=== PATIENT | male | born 1965 | race Caucasian/White ===

== ENCOUNTER 2016-09-05 11:44 | Inpatient (IN) | payer BC ==
[~2016-09-05] VITALS: Ht 193 cm; Wt 88.6 kg
--- NOTE | 2016-09-05 12:14 | EMERGENCY ROOM VISIT NOTE ---
History Report prepared by Howard: Yogi Olivares Under the Supervision of: Dr. Tom Holly M.D. First contact with patient: 11:56 Chief Complaint: ILLNESS Stated Complaint: ACUTE HEPATITIS History of Present Illness The patient is a 51 year old male who presents to the Emergency Room with complaints of persistent jaundice for the past three days. The patient went to his PCP's office yesterday, where he had blood work. His liver enzyme values were T-B 9.6, AST 82, ALT 380. He had a negative ABC test. The patient has had abdominal cramping for the past five days, which has improved but is still present. He also experienced fevers, vomiting, and diarrhea since the onset of his abdominal pain. The patient was referred to the ED by his PCP, Dr. Michel. The patient had one Tylenol on Saturday. The patient drinks about one glass of wine per day. The patient also notes that he had 2 cups of CAVA tea. The patient still has his gallbladder. He has not had any previous abdominal surgeries. Source of History: patient Onset: three days Position: other (skin) Quality: other (jaundice) Timing: other (persistent) Associated Symptoms: + abdominal pain, + diarrhea, + fevers, + vomiting Review of Systems See HPI for pertinent positives & negatives. A total of 10 systems reviewed and were otherwise negative. Past Medical & Surgical Medical Problems: (1) Choledocholithiasis (2) HTN (hypertension) (3) Hypothyroidism (4) MVP (mitral valve prolapse) Surgical Problems: (1) H/O wisdom tooth extraction Family History Cancer Heart disease Hypertension Social History Smoking Status: Never Smoker Alcohol Use: occasionally Marital Status: Housing Status: lives with family Occupation Status: employed Current/Historical Medications Scheduled Levothyroxine Sodium (Levothyroxine Sodium), 125 MCG PO DAILY Multiple Vitamins W/ Minerals (Centrum Silver), 1 TAB PO HS Allergies Coded Allergies: No Known Allergies (Unverified , 09/05/16) Physical Exam Vital Signs Date Time Temp Pulse Resp B/P Pulse Ox O2 Delivery O2 Flow Rate FiO2 09/05/16 17:39 83 09/05/16 17:21 78 20 138/91 97 Room Air 09/05/16 15:00 77 20 112/78 99 Room Air 09/05/16 13:44 78 18 144/89 96 09/05/16 12:29 79 09/05/16 11:53 36.9 92 18 154/109 96 Room Air Physical Exam GENERAL: Patient is jaundiced in appearance. HEAD: Normocephalic atraumatic EYES: Ocular movements intact pupils equal and react to light. Sclera are injected. OROPHARYNX mucous membranes are moist no exudates present no erythema or edema present NECK: Supple no nuchal rigidity CHEST: Good equal expansion LUNGS: Clear and equal to auscultation CARDIAC: Normal S1 and S2 ABDOMEN: Soft nontender no guarding BACK: No CVA tenderness EXTREMITIES: No pain upon palpation normal muscle strength in all groups no clubbing cyanosis or edema NEURO: Patient is following commands is answering questions appropriately. Alert and oriented x3 Cranial Nerves 2-12 grossly intact Medical Decision & Procedures ER Provider Diagnostic Interpretation: Radiology results as stated below per my review and radiologist interpretation: ABDOMINAL ULTRASOUND, RIGHT UPPER QUADRANT HISTORY: Right upper quadrant abdominal pain. Acute hepatitis. COMPARISON: None. FINDINGS: The liver is slightly heterogeneous. The liver is not overtly cirrhotic. There is mild intra and extrahepatic biliary ductal dilatation. The common bile duct measures 8 mm in caliber. The distal common bile duct is obscured. No common bile duct calculi are identified by sonography. The gallbladder is filled with gallstones. The pancreatic body is normal. The head and tail are obscured. There is no right hydronephrosis. IMPRESSION: 1. Mild intra and extrahepatic biliary ductal dilatation. No common bile duct calculi identified although the distal common bile duct is obscured. Correlation with obstructive liver function tests is recommended to evaluate for potential biliary obstruction. 2. Gallbladder filled with gallstones. Mild gallbladder wall thickening with no pericholecystic fluid. 3. Partially obscured pancreas. Electronically signed by: Erik Mcclendon M.D. 09/05/2016 1:33 PM Dictated Date/Time: 09/05/2016 1:31 PM Laboratory Results Test 09/05/16 12:20 09/05/16 12:22 Urine Color DK YELLOW Urine Appearance CLEAR (CLEAR) Urine pH 5.5 (4.5-7.5) Urine Specific [place] 1.021 (1.000-1.030) Urine Protein TRACE (NEG) Urine Glucose (UA) NEG (NEG) Urine Ketones 1+ (NEG) Urine Occult Blood NEG (NEG) Urine Nitrite NEG (NEG) Urine Bilirubin 3+ (NEG) Urine Urobilinogen NEG (NEG) Urine Leukocyte Esterase SMALL (NEG) Urine WBC (Auto) 0 /hpf (0-5) Urine RBC (Auto) 5-10 /hpf (0-4) Urine Hyaline Casts (Auto) 0 /lpf (0-5) Urine Epithelial Cells (Auto) 0-5 /lpf (0-5) Urine Bacteria (Auto) NEG (NEG) Immature Granulocyte % (Auto) 0.3 % White Blood Count 9.92 K/uL (4.8-10.8) Red Blood Count 5.26 M/uL (4.7-6.1) Hemoglobin 16.2 g/dL (14.0-18.0) Hematocrit 45.7 % (42-52) Mean Corpuscular Volume 86.9 fL (80-100) Mean Corpuscular Hemoglobin 30.8 pg (25-34) Mean Corpuscular Hemoglobin Concent 35.4 g/dl (32-36) Platelet Count 243 K/uL (130-400) Mean Platelet Volume 10.5 fL (7.4-10.4) Neutrophils (%) (Auto) 72.4 % Lymphocytes (%) (Auto) 13.4 % Monocytes (%) (Auto) 12.8 % Eosinophils (%) (Auto) 0.7 % Basophils (%) (Auto) 0.4 % Neutrophils # (Auto) 7.18 K/uL (1.4-6.5) Lymphocytes # (Auto) 1.33 K/uL (1.2-3.4) Monocytes # (Auto) 1.27 K/uL (0.11-0.59) Eosinophils # (Auto) 0.07 K/uL (0-0.5) Basophils # (Auto) 0.04 K/uL (0-0.2) Immature Granulocyte # (Auto) 0.03 K/uL (0.00-0.02) Ferritin 282.4 ng/ml (8.0-388.0) Direct Bilirubin 8.1 mg/dl (0-0.2) Acetaminophen Level ug/ml (10-30) Hepatitis B Surface Antigen NEG (NEG) Hepatitis C Antibody NEG (NEG) Labs reviewed by ED physician. ED Course 1205: Past medical records reviewed. The patient was evaluated in room A4b. A complete history and physical examination was performed. 1455: Discussed the case with the electron microprobe operator [facility] [address] [facility]. They recommended admitting the patient to medicine. 1456: Discussed the case with Orlando Reddy. The patient will be evaluated. Medical Decision Etiologies such as appendicitis, diverticulitis, PUD, biliary pathology, UTI, pancreatitis, obstruction, mesenteric ischemia, aortic pathology, infections, inflammatory bowel disease, renal colic, as well as others were entertained. This is a 51-year-old male who presents emergency department jaundiced with elevated T bili. The patient at this point is currently pain-free. Ultrasound is concerning for multiple dilated intrahepatic ducts. Based on these findings I discussed the patient with gastroenterology who asked that the patient be admitted. Patient was in agreement with the treatment plan. Consults Time Called: 1449 Consulting Physician: Orlando Reddy Returned Call: [phone]: Discussed the case with Orlando Reddy. The patient will be evaluated. Impression Primary Impression: Jaundice Scribe Attestation The scribe's documentation has been prepared under my direction and personally reviewed by me in its entirety. I confirm that the note above accurately reflects all work, treatment, procedures, and medical decision making performed by me. Departure Information Dispostion Being Evaluated By Hospitalist Referrals Elio Newman M.D.(NATASHA) (PCP) Patient Instructions My [facility]
[2016-09-05] MEDS ORDERED: MULTCHW PO (12:23)
[2016-09-05] MEDS ORDERED: LEVO25TA5 PO (12:23)
[2016-09-05 12:33] LABS: BASO % 0.4 %; BASO ABS # 0.04 K/uL (0-0.2); COMPLETE YES; EOS % 0.7 %; HEMATOCRIT 45.7 % (42-52); IG% 0.3 %; LYMPH % 13.4 %; LYMPH ABS # 1.33 K/uL (1.2-3.4); MEAN CELL VOLUME 86.9 fL (80-100); MEAN CORPUSCULAR HEMOGLOBIN 30.8 pg (25-34); MEAN CORPUSCULAR HGB CONC 35.4 g/dl (32-36); MEAN PLATELET VOLUME 10.5 fL (7.4-10.4); MONO % 12.8 %; NEUT % 72.4 %; PLATELET COUNT 243 K/uL (130-400); RED BLOOD COUNT 5.26 M/uL (4.7-6.1); WHITE BLOOD COUNT 9.92 K/uL (4.8-10.8)
[2016-09-05 12:35] LABS: URINE APPEARANCE CLEAR (CLEAR); URINE COLOR DK YELLOW; URINE EPITHELIAL CELL AUTO 0-5 /lpf (0-5); URINE PH 5.5 (4.5-7.5); URINE SPECIFIC GRAVITY 1.021 (1.000-1.030); UROBILINOGEN NEG (NEG)
[2016-09-05 12:37] LABS: MANUAL MICROSCOPIC REQUIRED? NO; REVIEW REQ? NO; URINE BILIRUBIN 3+ (NEG)
[2016-09-05 12:39] LABS: URINE NITRITE NEG (NEG)
[2016-09-05 12:55] LABS: BUN/CREATININE RATIO 9.2 (10-20); CALCIUM 9.5 mg/dl (8.5-10.1); CREATININE 0.87 mg/dl (0.60-1.40); POTASSIUM 3.7 mmol/L (3.5-5.1)
[2016-09-05 12:59] LABS: FERRITIN 282.4 ng/ml (8.0-388.0)
--- NOTE | 2016-09-05 13:35 | DIAGNOSTIC IMAGING REPORT ---
ABDOMINAL ULTRASOUND, RIGHT UPPER QUADRANT HISTORY: Right upper quadrant abdominal pain. Acute hepatitis. COMPARISON: None. FINDINGS: The liver is slightly heterogeneous. The liver is not overtly cirrhotic. There is mild intra and extrahepatic biliary ductal dilatation. The common bile duct measures 8 mm in caliber. The distal common bile duct is obscured. No common bile duct calculi are identified by sonography. The gallbladder is filled with gallstones. The pancreatic body is normal. The head and tail are obscured. There is no right hydronephrosis. IMPRESSION: 1. Mild intra and extrahepatic biliary ductal dilatation. No common bile duct calculi identified although the distal common bile duct is obscured. Correlation with obstructive liver function tests is recommended to evaluate for potential biliary obstruction. 2. Gallbladder filled with gallstones. Mild gallbladder wall thickening with no pericholecystic fluid. 3. Partially obscured pancreas. Electronically signed by: Erik Mcclendon M.D. 09/05/2016 1:33 PM Dictated Date/Time: 09/05/2016 1:31 PM
--- NOTE | 2016-09-05 17:08 | DIAGNOSTIC IMAGING REPORT ---
MRCP CLINICAL HISTORY: Biliary obstruction. Hepatitis. COMPARISON STUDY: Abdominal ultrasound dated 09/05/2016. TECHNIQUE: Abdominal MRCP is performed utilizing various T2-weighted sequences in the axial and coronal planes. 3-D reformats are created and assessed. IV contrast was not administered for this examination. FINDINGS: The gallbladder is filled with large gallstones. No significant gallbladder wall thickening is identified. There is no pericholecystic inflammation or fluid. A filling defect in the common bile duct is suspected on coronal high-resolution image #73. The upstream common bile duct is mildly dilated measuring up to 7 mm. There is mild intrahepatic biliary ductal dilatation. The distal common bile duct is normal in caliber measuring up to 4 mm. The pancreatic duct is normal. The liver is normal in size and shows homogeneous signal intensity on the provided sequences. There is a 1.1 cm T2 hyperintense lesion in the inferior right lobe seen on axial image #19. The kidneys are normal in size and without hydronephrosis. There is a 3.9 cm left renal cyst. The pancreas is normal as imaged, as are the adrenal glands and spleen. There is no bowel obstruction. Colonic fecal retention is observed. No abdominal ascites is identified. No pleural effusion is seen. IMPRESSION: 1. Cholelithiasis without convincing MRI evidence of acute cholecystitis. 2. Choledocholithiasis is suspected, with a small stone located in the proximal common bile duct. There is upstream intra and extrahepatic biliary ductal dilatation. 3. There is an indeterminant 1.1 cm T2 hyperintense lesion in the inferior right lobe. This may represent a small hemangioma but is incompletely characterized. This is of low suspicion. If further assessment is desired then a targeted ultrasound could be considered, or a liver protocol CT/MRI could be obtained on a nonemergent basis. Electronically signed by: Carloz Kebede M.D. 09/05/2016 5:06 PM Dictated Date/Time: 09/05/2016 4:59 PM
[2016-09-05] MEDS ORDERED: ONDANSETRON INJ 2 MG/ML 2 ML VIAL IV PRN (18:00)
[2016-09-05] MEDS ORDERED: ACETAMINOPHEN 325 MG TAB PO PRN (18:00)
[2016-09-05] MEDS ORDERED: LEVO125T4 PO (18:02)
--- NOTE | 2016-09-05 18:25 | History and Physical ---
History & Physical Date & Time of Service: Sep 05, 2016 at 18:02 Chief Complaint: Acute Hepatitis Primary Care Physician: Elio Newman M.D.(NATASHA) History of Present Illness Source: patient This is a 51 y/o male with PMHx of Hypothyroidism, situational HTN and other problems as outlined below who presents to the ED c/o intermittent abdominal pain x 5 days. Pt reports that 5 days ago he developed diffuse "burning" abd pain after eating house meatballs for dinner. Since that time patient reports waxing and waning pain that seems to be worse after eating. Sxs are assoc with low grade fever (100.4*F), jaundice, N/V, dark urine and pale stool. Pt took a Tylenol on Saturday for his fever but has not taken anything at home for his pain. Pt was seen by his PCP yesterday. Labwork revealed elevated LFTs and patient was referred to the ED. Pt has no history of gallbladder issues and no history of abdominal surgeries. Pt denies chest pain, SOB, constipation, diarrhea, LE edema ,calf pain, lightheadedness/dizziness. In the ED, pt is hypertensive on arrival. He is afebrile with no leukocytosis. Total bili 9.8. direct bili 8.1. AST 76. ALT 330. Urine 3+ bili. MRCP + choledocholithiasis without evidence of acute cholecystitis. Pt is currently stable and comfortable and will be admitted for further evaluation and treatment. Past Medical/Surgical History Medical Problems: (1) HTN (hypertension) Status: Chronic (2) Hypothyroidism Status: Chronic (3) MVP (mitral valve prolapse) Status: Chronic Surgical Problems: (1) H/O wisdom tooth extraction Status: Resolved Family History Cancer Heart disease Hypertension Social History Smoking Status: Never Smoker Alcohol Use: 1 glass of wine daily Marital Status: Housing status: lives with family Occupational Status: employed ([employer]) Multi-Drug Resistant Organisms History of MDRO: No Allergies Coded Allergies: No Known Allergies (Unverified , 09/05/16) Home Medications Scheduled Levothyroxine Sodium (Levothyroxine Sodium), 125 MCG PO DAILY Multiple Vitamins W/ Minerals (Centrum Silver), 1 TAB PO HS Review of Systems Constitutional: + fever (low grade:resolved), No chills, No fatigue, No sweats , No weakness Eyes: + problem reported (scleral icterus ), No worsening of vision ENT: No hearing loss Respiratory: No cough, No shortness of breath Cardiovascular: No chest pain, No claudication, No edema Abdomen: + nausea, + pain, + vomiting, No GI bleeding, No constipation, No diarrhea Musculoskeletal: No calf pain, No swelling Genitourinary - Male: No dysuria Neurologic: No weakness Psychiatric: No depression symptoms Endocrine: No fatigue Hematologic / Lymphatic: No abnormal bleeding/bruising Integumentary: + color change (jaundice) Physical Exam Vital Signs Date Time Temp Pulse Resp B/P Pulse Ox O2 Delivery O2 Flow Rate FiO2 09/05/16 17:39 83 09/05/16 17:21 78 20 138/91 97 Room Air 09/05/16 15:00 77 20 112/78 99 Room Air 09/05/16 13:44 78 18 144/89 96 09/05/16 12:29 79 09/05/16 11:53 36.9 92 18 154/109 96 Room Air General Appearance: WD/WN, no apparent distress, + pertinent finding (Pt is sitting up in bed with at bedside ) Head: normocephalic, atraumatic Eyes: + pertinent finding (scleral icterus ) ENT: hearing grossly normal Neck: supple Respiratory/Chest: chest non-tender, lungs clear, normal breath sounds, no respiratory distress Cardiovascular: regular rate, rhythm, no edema, no murmur Abdomen/GI: normal bowel sounds, soft, + tenderness (mild RUQ tenderness) Back: normal inspection Extremities/Musculoskelatal: normal inspection, no calf tenderness, no pedal edema Neurologic/Psych: alert, normal mood/affect, oriented x 3 Skin: warm/dry, no rash, + jaundice Diagnostics Laboratory Results Results Past 24 Hours Test 09/05/16 12:20 09/05/16 12:22 Range/Units Urine Color DK YELLOW Urine Appearance CLEAR CLEAR Urine pH 5.5 4.5-7.5 Urine Specific [place] 1.021 1.000-1.030 Urine Protein TRACE NEG Urine Glucose (UA) NEG NEG Urine Ketones 1+ NEG Urine Occult Blood NEG NEG Urine Nitrite NEG NEG Urine Bilirubin 3+ NEG Urine Urobilinogen NEG NEG Urine Leukocyte Esterase SMALL NEG Urine WBC (Auto) 0 0-5 /hpf Urine RBC (Auto) 5-10 0-4 /hpf Urine Hyaline Casts (Auto) 0 0-5 /lpf Urine Epithelial Cells (Auto) 0-5 0-5 /lpf Urine Bacteria (Auto) NEG NEG White Blood Count 9.92 4.8-10.8 K/uL Red Blood Count 5.26 4.7-6.1 M/uL Hemoglobin 16.2 14.0-18.0 g/dL Hematocrit 45.7 42-52 % Mean Corpuscular Volume 86.9 80-100 fL Mean Corpuscular Hemoglobin 30.8 25-34 pg Mean Corpuscular Hemoglobin Concent 35.4 32-36 g/dl Platelet Count 243 130-400 K/uL Mean Platelet Volume 10.5 7.4-10.4 fL Neutrophils (%) (Auto) 72.4 % Lymphocytes (%) (Auto) 13.4 % Monocytes (%) (Auto) 12.8 % Eosinophils (%) (Auto) 0.7 % Basophils (%) (Auto) 0.4 % Neutrophils # (Auto) 7.18 1.4-6.5 K/uL Lymphocytes # (Auto) 1.33 1.2-3.4 K/uL Monocytes # (Auto) 1.27 0.11-0.59 K/uL Eosinophils # (Auto) 0.07 0-0.5 K/uL Basophils # (Auto) 0.04 0-0.2 K/uL RDW Standard Deviation 40.8 36.4-46.3 fL RDW Coefficient of Variation 12.8 11.5-14.5 % Immature Granulocyte % (Auto) 0.3 % Immature Granulocyte # (Auto) 0.03 0.00-0.02 K/uL Sodium Level 137 136-145 mmol/L Potassium Level 3.7 3.5-5.1 mmol/L Chloride Level 98 98-107 mmol/L Carbon Dioxide Level 27 21-32 mmol/L Anion Gap 12.0 3-11 mmol/L Blood Urea Nitrogen 8 7-18 mg/dl Creatinine 0.87 0.60-1.40 mg/dl Est Creatinine Clear Calc Drug Dose 124.7 ml/min Estimated GFR () 116.6 Estimated GFR (Non- 100.6 BUN/Creatinine Ratio 9.2 10-20 Random Glucose 101 70-99 mg/dl Calcium Level 9.5 8.5-10.1 mg/dl Ferritin 282.4 8.0-388.0 ng/ml Total Bilirubin 9.8 0.2-1 mg/dl Direct Bilirubin 8.1 0-0.2 mg/dl Aspartate Amino Transf (AST/SGOT) 76 15-37 U/L Alanine Aminotransferase (ALT/SGPT) 330 12-78 U/L Alkaline Phosphatase 327 45-117 U/L Total Protein 8.0 6.4-8.2 gm/dl Albumin 3.9 3.4-5.0 gm/dl Lipase 122 73-393 U/L Acetaminophen Level 10-30 ug/ml Hepatitis B Surface Antigen NEG NEG Hepatitis C Antibody NEG NEG Diagnostic Radiology MRCP IMPRESSION: 1. Cholelithiasis without convincing MRI evidence of acute cholecystitis. 2. Choledocholithiasis is suspected, with a small stone located in the proximal common bile duct. There is upstream intra and extrahepatic biliary ductal dilatation. 3. There is an indeterminant 1.1 cm T2 hyperintense lesion in the inferior right lobe. This may represent a small hemangioma but is incompletely characterized. This is of low suspicion. If further assessment is desired then a targeted ultrasound could be considered, or a liver protocol CT/MRI could be obtained on a nonemergent basis. ABDOMINAL US IMPRESSION: 1. Mild intra and extrahepatic biliary ductal dilatation. No common bile duct calculi identified although the distal common bile duct is obscured. Correlation with obstructive liver function tests is recommended to evaluate for potential biliary obstruction. 2. Gallbladder filled with gallstones. Mild gallbladder wall thickening with no pericholecystic fluid. 3. Partially obscured pancreas. EKG EKG: Impression Assessment and Plan CHOLEDOCHOLITHIASIS pt presented with post-prandial abd pain, low grade fevers, jaundice, N/V; no prior h/o gallbladder issues -admit to med/surg -cholangitis considered but unlikely with with no fever or leukocytosis -MRCP + Choledocholithiasis is suspected, with a small stone located in the proximal common bile duct. There is upstream intra and extrahepatic biliary ductal dilatation. No evidence of acute cholecystitis. -total bili 9.8, direct bili 8.1, AST 76, ALT 330 -hepatic serologies-pending -cont IVF -start Protonix and morphine PRN pain -clear liquid diet and NPO after midnight for procedure tomorrow -consulted GI-plan for ERCP tomorrow @11:30am -monitor HEPATIC LESION -MRCP+ indeterminant 1.1 cm T2 hyperintense lesion in the inferior right lobe. This may represent a small hemangioma but is incompletely characterized. This is of low suspicion. -If further assessment is desired then a targeted ultrasound or a liver protocol CT/MRI could be obtained on a nonemergent basis. HYPOTHYROIDISM -cont levothyroxine HTN -BP elevated on arrival; stable now -not on medications at home -monitor DVT PROPHYLAXIS -SCDs only due to procedure tomorrow CODE STATUS -FULL CODE status per discussion with patient upon admission DISPO -Pt seen in collaboration with Dr. Chan. Please see his addendum for further details. Thanks! ATTENDING NOTE Patient seen & examined at bedside. Reviewed the History/Physical and confirmed the findings in person. Patient has sudden rise in LFTs likely caused by Biliary stone causing obstruction. Reviewed MRCP. patient is being admitted to Medical floor. Maintain NPO for possible ERCP in AM. Pain medications as needed. Started Protonix. Discussed with Dr. Escobar as well. Patient is FULL CODE. DVT Prophylaxis: SCDs. Reji Chan MD Level of Care Med/Surg Resuscitation Status FULL RESUSCITATION VTE Prophylaxis VTE Risk Assessment Done? Y/N: Yes Risk Level: Low Given or contraindicated: SCD's
[2016-09-05] MEDS ORDERED: MoRPHine SULFATE 4 MG/ML 1 ML CARP\\VIAL IV PRN (18:45)
[2016-09-05 19:45] VITALS: BP 129/81; PULSE 73; TEMP 36.7; O2SAT 97; Ht 193 cm; Wt 88.6 kg
[2016-09-05] MEDS: SODIUM CHLORIDE 0.9% 1000ML 1,000 ML IV SCH (20:56)
[2016-09-05 21:57] VITALS: BP 126/76; PULSE 73; TEMP 36.7; O2SAT 95
[2016-09-05 23:02] VITALS: BP 118/69; PULSE 86; TEMP 37.1; O2SAT 94
--- NOTE | 2016-09-05 23:41 | Anesthesiology Progress Note ---
Pre-OP Anesthesia Assessment Date of Note Sep 05, 2016. Review patient information reviewed, chart reviewed, labs reviewed, acceptable for surgery Notes Middle-aged male presented with abdominal pain, fever and jaundice. Scheduled for esophageal ultrasound and ERCP. PMH includes hypothyroidism and MVP ("mild "). Pt apparently has not had GA in the past. GA explained. He expressed understanding and signed informed consent.
[2016-09-06] VITALS (10 sets, daily range): BP systolic 112–151; BP diastolic 68–91; PULSE 63–89; TEMP 36.5–37.2; O2SAT 93–98
[2016-09-06 07:12] LABS: HEMATOCRIT 43.3 % (42-52); MEAN CELL VOLUME 87.7 fL (80-100); MEAN CORPUSCULAR HEMOGLOBIN 31.4 pg (25-34); MEAN CORPUSCULAR HGB CONC 35.8 g/dl (32-36); MEAN PLATELET VOLUME 10.5 fL (7.4-10.4); PLATELET COUNT 229 K/uL (130-400); RED BLOOD COUNT 4.94 M/uL (4.7-6.1); WHITE BLOOD COUNT 6.52 K/uL (4.8-10.8)
[2016-09-06 07:19] LABS: PROTHROMBIN TIME (PATIENT) 10.8 SECONDS (9.0-12.0)
[2016-09-06] MEDS: SODIUM CHLORIDE 0.9% 1000ML 1,000 ML IV SCH ×2 (07:31→21:21)
[2016-09-06 07:37] LABS: BUN/CREATININE RATIO 11.7 (10-20); CREATININE 0.69 mg/dl (0.60-1.40)
[2016-09-06 07:38] LABS: MAGNESIUM 1.9 mg/dl (1.8-2.4)
[2016-09-06 07:48] LABS: ALB/GLOB RATIO 0.9 (0.9-2)
--- NOTE | 2016-09-06 09:00 | Gastrointestinal Consultation ---
Gastrointestinal Consultation Date of Consultation: Sep 06, 2016 Attending Physician: eRji Chan Consulting Physician: Alicia Escobar Reason for Consultation: Choledocholithiasis History of Present Illness Patient is a 51 year old male w PMHx of Jennifer's hypothyroidism, HTN, MVP who presented to ED w c/o intermittent abd pain x 5 days. He noticed it after eating some house meatballs 5 days ago. Has associated low grade fevers, also started to notice his urine turning dark on Saturday. Stools are also pale. By Saturday he noticed a small hint of jaundice, then by Saturday it was noticably worse. He had gone to [facility] and seen by Dr. Michel - labs drawn including acute hepatitis panel, and LFTs. Hep A, B, C negative. LFTs showed Tbili 9, AST 82, ALT 380, AP 299. He was then referred to ED. Repeat labs in ED w/o signs of leukocytosis, anemia. LFTs similar values as above. Abd u/s showed gallstones w CBD dilation of 8mm. MRCP showed possible choledocholithiasis in proximal bile duct, again w biliary ductal dilation. He has been afebrile overnight. Denies any abd pain, n/v this AM. Still appears jaundiced. He has been scheduled to undergo ERCP for choledocholithiasis removal w possible biliary stent placement and sphincterectomy by Dr. Escobar in the OR at 11AM. Of note, he denies much ETOH uses, nor illicit drugs. He denies hx of blood transfusions, tattoos or piercing. He does take Tylenol occasionally and [place]'s Wort. A couple of weeks ago had Cava tea x 5 cups. He has family hx of Hashimotos. His repeat acute hep panel and AMA, ASMA, ERICK here are all pending. Past Medical/Surgical History Medical Problems: (1) Jaundice Status: Acute Past Medical History: See above. Past Surgical History: [place] teeth removal Family History Cancer Heart disease Hypertension Social History Smoking Status: Never Smoker Alcohol Use: occasionally Drug Use: none Marital Status: Housing Status: lives with family Occupation Status: employed ([employer]) Allergies Coded Allergies: No Known Allergies (Unverified , 09/05/16) Current Medications Home Meds and Scripts Medications Dose Route/Sig Max Daily Dose Days Date Category Levothyroxine Sodium 125 Mcg Tab 125 Mcg PO DAILY 30 09/05/16 Reported Centrum Silver (Multiple Vitamins W/ Minerals) 1 Chw Chw 1 Tab PO HS 09/05/16 Reported Review of Systems Constitutional: No chills, No fever Cardiac: No chest pain, No edema Abdomen: + acolic stools, + dark urine, + pain (resolved), No nausea, No vomiting Skin: + jaundice, No itch, No rash Physical Exam Date Time Temp Pulse Resp B/P Pulse Ox O2 Delivery O2 Flow Rate FiO2 09/06/16 08:00 98 Room Air 09/05/16 23:02 37.1 86 15 118/69 94 Room Air 09/05/16 19:45 36.7 73 20 129/81 97 Room Air 09/05/16 19:45 Room Air 09/05/16 19:45 Room Air 09/05/16 19:35 84 133/83 09/05/16 19:00 78 20 133/83 98 Room Air 09/05/16 18:00 80 20 135/70 97 09/05/16 17:39 83 09/05/16 17:21 78 20 138/91 97 Room Air 09/05/16 15:00 77 20 112/78 99 Room Air 09/05/16 13:44 78 18 144/89 96 09/05/16 12:29 79 09/05/16 11:53 36.9 92 18 154/109 96 Room Air General Appearance: WD/WN, no apparent distress Eyes: EOMI, + pertinent finding (icteric sclera) Neck: supple, no JVD, trachea midline Respiratory/Chest: normal breath sounds, no respiratory distress, no accessory muscle use Cardiovascular: regular rate, rhythm, no gallop, no murmur Abdomen: normal bowel sounds, non tender, soft Extremities: normal inspection, no pedal edema, no calf tenderness Neurologic/Psych: alert, normal mood/affect, oriented x 3 Skin: warm/dry, no rash, + jaundice Laboratory Results Last 24 Hours Test 09/05/16 12:20 09/05/16 12:22 09/06/16 06:20 Urine Color DK YELLOW Urine Appearance CLEAR Urine pH 5.5 Urine Specific [place] 1.021 Urine Protein TRACE Urine Glucose (UA) NEG Urine Ketones 1+ Urine Occult Blood NEG Urine Nitrite NEG Urine Bilirubin 3+ Urine Urobilinogen NEG Urine Leukocyte Esterase SMALL Urine WBC (Auto) 0 /hpf Urine RBC (Auto) 5-10 /hpf Urine Hyaline Casts (Auto) 0 /lpf Urine Epithelial Cells (Auto) 0-5 /lpf Urine Bacteria (Auto) NEG White Blood Count 9.92 K/uL 6.52 K/uL Red Blood Count 5.26 M/uL 4.94 M/uL Hemoglobin 16.2 g/dL 15.5 g/dL Hematocrit 45.7 % 43.3 % Mean Corpuscular Volume 86.9 fL 87.7 fL Mean Corpuscular Hemoglobin 30.8 pg 31.4 pg Mean Corpuscular Hemoglobin Concent 35.4 g/dl 35.8 g/dl Platelet Count 243 K/uL 229 K/uL Mean Platelet Volume 10.5 fL 10.5 fL Neutrophils (%) (Auto) 72.4 % Lymphocytes (%) (Auto) 13.4 % Monocytes (%) (Auto) 12.8 % Eosinophils (%) (Auto) 0.7 % Basophils (%) (Auto) 0.4 % Neutrophils # (Auto) 7.18 K/uL Lymphocytes # (Auto) 1.33 K/uL Monocytes # (Auto) 1.27 K/uL Eosinophils # (Auto) 0.07 K/uL Basophils # (Auto) 0.04 K/uL RDW Standard Deviation 40.8 fL 41.8 fL RDW Coefficient of Variation 12.8 % 13.0 % Immature Granulocyte % (Auto) 0.3 % Immature Granulocyte # (Auto) 0.03 K/uL Sodium Level 137 mmol/L 141 mmol/L Potassium Level 3.7 mmol/L 4.0 mmol/L Chloride Level 98 mmol/L 104 mmol/L Carbon Dioxide Level 27 mmol/L 27 mmol/L Anion Gap 12.0 mmol/L 10.0 mmol/L Blood Urea Nitrogen 8 mg/dl 8 mg/dl Creatinine 0.87 mg/dl 0.69 mg/dl Est Creatinine Clear Calc Drug Dose 124.7 ml/min 157.2 ml/min Estimated GFR () 116.6 128.3 Estimated GFR (Non- 100.6 110.7 BUN/Creatinine Ratio 9.2 11.7 Random Glucose 101 mg/dl 94 mg/dl Calcium Level 9.5 mg/dl 9.0 mg/dl Ferritin 282.4 ng/ml Total Bilirubin 9.8 mg/dl 9.3 mg/dl Direct Bilirubin 8.1 mg/dl Aspartate Amino Transf (AST/SGOT) 76 U/L 75 U/L Alanine Aminotransferase (ALT/SGPT) 330 U/L 271 U/L Alkaline Phosphatase 327 U/L 284 U/L Total Protein 8.0 gm/dl 6.8 gm/dl Albumin 3.9 gm/dl 3.3 gm/dl Lipase 122 U/L 119 U/L Acetaminophen Level ug/ml Hepatitis B Surface Antigen NEG Hepatitis C Antibody NEG Prothrombin Time 10.8 SECONDS Prothromb Time International Ratio 1.0 Magnesium Level 1.9 mg/dl Globulin 3.5 gm/dl Albumin/Globulin Ratio 0.9 Impression Patient is a 51 year old male w jaundice, pale stools, dark urine, intermittent abd pain. LFTs elevated as noted in HPI above, u/s and MRCP showed gallstones, biliary duct dilation and likely choledocholithiasis in proximal bile duct. Plan - Keep NPO for ERCP in OR at 11AM by Dr. Escobar. Indomethacin 100mg MS to be sent to OR holding for ERCP pre-med - Consult Surgery to eval for possible cholecystectomy - F/U on autoimmune and hepatitis labs. I have seen and evaluated the patient. He presents with intermittent ruq pain associated with elevated liver tests and an MRCP showing a stone in the CBD. PE : NAD, mild ruq tenderness, scleral icterus noted. Impression: patient with choledocholithias for ERCP today. We have discussed the risks to include bleeding, infection, perforation, pain, failed cannulation, and pancreatitis. Plan: ERCP
[2016-09-06] MEDS ORDERED: INDOMETHACIN 50 MG SUPP PR ONE ×2 (09:30→11:30)
[2016-09-06] MEDS: PANTOprazole INJ 40 MG in SYRINGE 0 ML IV SCH (10:17)
[2016-09-06] MEDS ORDERED: MIDAZOLAM HCL 1 MG/ML 2ML VIAL ONE (10:49)
[2016-09-06] MEDS ORDERED: FENTANYL CITRATE INJ 50 MCG/1 ML 2 ML VIAL ONE (10:49)
--- NOTE | 2016-09-06 10:52 | History & Physical Bridge Note ---
H&P Re-Evaluation Bridge Note: I have examined the patient, reviewed the History & Physical and in the interval since the performance of the History & Physical I have noted the following changes of clinical significance: No changes noted I have seen and evaluated the patient. He presents with intermittent ruq pain associated with elevated liver tests and an MRCP showing a stone in the CBD. PE : NAD, mild ruq tenderness, scleral icterus noted. Impression: patient with choledocholithias for ERCP today. We have discussed the risks to include bleeding, infection, perforation, pain, failed cannulation, and pancreatitis. Plan: ERCP
[2016-09-06] MEDS ORDERED: FENTANYL CITRATE INJ 50 MCG/1 ML 2 ML VIAL IV PRN (11:00)
[2016-09-06] MEDS ORDERED: ATROPINE SULFATE 0.1 MG/ML 5ML SYR IV PRN (11:00)
[2016-09-06] MEDS ORDERED: ONDANSETRON INJ 2 MG/ML 2 ML VIAL IV PRN (11:00)
[2016-09-06] MEDS ORDERED: KETOROLAC TROMETHAMINE 30 MG/ML VIAL IV. PRN (11:00)
[2016-09-06] MEDS ORDERED: LABETALOL HCL IV 5 MG/ML 20ML IV PRN (11:00)
[2016-09-06] MEDS ORDERED: PROPOFOL IV EMULSION 10 MG/ML 20 ML VIAL IV ONE (11:44)
[2016-09-06] MEDS ORDERED: ONDANSETRON INJ 2 MG/ML 2 ML VIAL ONE (11:44)
[2016-09-06] MEDS ORDERED: LIDOCAINE HCL 2% 2 ML VIAL (20MG/ML) ONE (11:44)
[2016-09-06] MEDS ORDERED: LARYING-O-JET KIT (LTA) EXT ONE ×2 (11:44)
[2016-09-06] MEDS ORDERED: GLYCOPYRROLATE INJ 0.2 MG/ML VIAL ONE (11:44)
[2016-09-06] MEDS ORDERED: NEOSTIGMINE METHYLSULFATE 5 MG/5 ML SYR ONE (11:44)
[2016-09-06] MEDS ORDERED: ROCURONIUM BROMIDE 10 MG/ML 5 ML VIAL ONE (11:44)
[2016-09-06] MEDS ORDERED: DEXAMETHASONE SOD INJ 4 MG/ML VIAL ONE (11:44)
--- NOTE | 2016-09-06 12:07 | Surgery Consultation ---
Consultation Date of Consultation: Sep 06, 2016. Attending Physician: Reji Chan MD Reason for Consultation: gallstones History of Present Illness 52 y/o presented to ER with abdominal pain. w/u essentially revealed elevated LFT's and gallstones as well as dilated CBD pt currently down undergoing ERCP Past Medical/Surgical History Medical Problems: (1) Jaundice Status: Acute Family History Cancer Heart disease Hypertension Social History Smoking Status: Never Smoker Alcohol Use: 1 glass of wine daily Drug Use: none Marital Status: Housing Status: lives with family Occupation Status: employed ([employer] Professor) Allergies Coded Allergies: No Known Allergies (Unverified , 09/05/16) Home Medications Scheduled Levothyroxine Sodium (Levothyroxine Sodium), 125 MCG PO DAILY Multiple Vitamins W/ Minerals (Centrum Silver), 1 TAB PO HS Current Inpatient Medications Current Inpatient Medications Medications (Trade) Dose Ordered Sig/Zaira Route Start Time Stop Time Status Last Admin Dose Admin Acetaminophen (Tylenol Tab) 650 mg Q4H PRN PO 09/05/16 18:00 10/05/16 17:59 Ondansetron HCl 4 mg 4 mg Q6H PRN IV 09/05/16 18:00 10/05/16 17:59 Sodium Chloride 1,000 ml @ 75 mls/hr [id number] IV 09/05/16 18:00 10/05/16 17:59 09/06/16 07:31 75 MLS/HR Pantoprazole Sodium/Syringe (Protonix Inj/ Syringe) 10 ml @ 40 mls/min DAILY@1100 IV 09/06/16 11:00 10/06/16 10:59 09/06/16 10:17 40 MLS/MIN Morphine Sulfate (MoRPHine SULFATE INJ) 4 mg Q4H PRN IV 09/05/16 18:45 09/19/16 18:44 Ondansetron HCl (Zofran Inj) 4 mg ONE PRN IV 09/06/16 11:00 09/06/16 16:00 Atropine Sulfate (Atropine Sulfate 0.1MG/Ml Inj) 0.5 mg Q1M PRN IV 09/06/16 11:00 09/06/16 16:00 Fentanyl Citrate (Fentanyl Inj) 25 mcg Q5M PRN IV 09/06/16 11:00 09/06/16 16:00 Ketorolac Tromethamine (Toradol Inj) 30 mg ONE PRN IV. 09/06/16 11:00 09/06/16 16:00 Labetalol HCl (Normodyne IV) 5 mg Q5M PRN IV 09/06/16 11:00 09/06/16 16:00 Review of Systems Abdomen: + nausea, + pain Physical Exam Date Time Temp Pulse Resp B/P Pulse Ox O2 Delivery O2 Flow Rate FiO2 09/06/16 10:33 37.4 78 16 153/94 94 Room Air 09/06/16 09:30 36.7 73 18 126/76 95 Room Air 09/06/16 08:00 98 Room Air 09/05/16 23:02 37.1 86 15 118/69 94 Room Air 09/05/16 21:57 36.7 73 18 126/76 95 Room Air 09/05/16 19:45 36.7 73 20 129/81 97 Room Air 09/05/16 19:45 Room Air 09/05/16 19:45 Room Air 09/05/16 19:35 84 133/83 09/05/16 19:00 78 20 133/83 98 Room Air 09/05/16 18:00 80 20 135/70 97 09/05/16 17:39 83 09/05/16 17:21 78 20 138/91 97 Room Air 09/05/16 15:00 77 20 112/78 99 Room Air 09/05/16 13:44 78 18 144/89 96 09/05/16 12:29 79 Laboratory Results Last 24 Hours Test 09/05/16 12:20 09/05/16 12:22 09/06/16 06:20 Urine Color DK YELLOW Urine Appearance CLEAR Urine pH 5.5 Urine Specific [place] 1.021 Urine Protein TRACE Urine Glucose (UA) NEG Urine Ketones 1+ Urine Occult Blood NEG Urine Nitrite NEG Urine Bilirubin 3+ Urine Urobilinogen NEG Urine Leukocyte Esterase SMALL Urine WBC (Auto) 0 /hpf Urine RBC (Auto) 5-10 /hpf Urine Hyaline Casts (Auto) 0 /lpf Urine Epithelial Cells (Auto) 0-5 /lpf Urine Bacteria (Auto) NEG White Blood Count 9.92 K/uL 6.52 K/uL Red Blood Count 5.26 M/uL 4.94 M/uL Hemoglobin 16.2 g/dL 15.5 g/dL Hematocrit 45.7 % 43.3 % Mean Corpuscular Volume 86.9 fL 87.7 fL Mean Corpuscular Hemoglobin 30.8 pg 31.4 pg Mean Corpuscular Hemoglobin Concent 35.4 g/dl 35.8 g/dl Platelet Count 243 K/uL 229 K/uL Mean Platelet Volume 10.5 fL 10.5 fL Neutrophils (%) (Auto) 72.4 % Lymphocytes (%) (Auto) 13.4 % Monocytes (%) (Auto) 12.8 % Eosinophils (%) (Auto) 0.7 % Basophils (%) (Auto) 0.4 % Neutrophils # (Auto) 7.18 K/uL Lymphocytes # (Auto) 1.33 K/uL Monocytes # (Auto) 1.27 K/uL Eosinophils # (Auto) 0.07 K/uL Basophils # (Auto) 0.04 K/uL RDW Standard Deviation 40.8 fL 41.8 fL RDW Coefficient of Variation 12.8 % 13.0 % Immature Granulocyte % (Auto) 0.3 % Immature Granulocyte # (Auto) 0.03 K/uL Sodium Level 137 mmol/L 141 mmol/L Potassium Level 3.7 mmol/L 4.0 mmol/L Chloride Level 98 mmol/L 104 mmol/L Carbon Dioxide Level 27 mmol/L 27 mmol/L Anion Gap 12.0 mmol/L 10.0 mmol/L Blood Urea Nitrogen 8 mg/dl 8 mg/dl Creatinine 0.87 mg/dl 0.69 mg/dl Est Creatinine Clear Calc Drug Dose 124.7 ml/min 157.2 ml/min Estimated GFR () 116.6 128.3 Estimated GFR (Non- 100.6 110.7 BUN/Creatinine Ratio 9.2 11.7 Random Glucose 101 mg/dl 94 mg/dl Calcium Level 9.5 mg/dl 9.0 mg/dl Ferritin 282.4 ng/ml Total Bilirubin 9.8 mg/dl 9.3 mg/dl Direct Bilirubin 8.1 mg/dl Aspartate Amino Transf (AST/SGOT) 76 U/L 75 U/L Alanine Aminotransferase (ALT/SGPT) 330 U/L 271 U/L Alkaline Phosphatase 327 U/L 284 U/L Total Protein 8.0 gm/dl 6.8 gm/dl Albumin 3.9 gm/dl 3.3 gm/dl Lipase 122 U/L 119 U/L Acetaminophen Level ug/ml Hepatitis B Surface Antigen NEG Hepatitis C Antibody NEG Prothrombin Time 10.8 SECONDS Prothromb Time International Ratio 1.0 Magnesium Level 1.9 mg/dl Globulin 3.5 gm/dl Albumin/Globulin Ratio 0.9 Assessment & Plan pt unavailable for exam appears to be choledocholithiasis/cholelithiasis will await ERCP results recheck LFT's rec lap tricia this admission could possibly be done tomorrow if LFT's improve after ERCP
--- NOTE | 2016-09-06 13:26 | GI REPORT ---
Procedure Date: 09/06/2016 10:56 AM Procedure: ERCP Indications: Abdominal pain of suspected biliary origin, Abnormal MRCP, Jaundice Medicines: General Anesthesia, Indocin 100 mg [place] Complications: No immediate complications. Estimated blood loss: Minimal. Estimated Blood Loss: Estimated blood loss was minimal. Procedure: Pre-Anesthesia Assessment: - Prior to the procedure, a History and Physical was performed, and patient medications, allergies and sensitivities were reviewed. The patient's tolerance of previous anesthesia was reviewed. - The risks and benefits of the procedure and the sedation options and risks were discussed with the patient. All questions were answered and informed consent was obtained. - Patient identification and proposed procedure were verified prior to the procedure by the physician, the nurse and the agricultural equipment salesperson. The procedure was verified in the procedure room. - Pre-procedure physical examination revealed no contraindications to sedation. - ASA Grade Assessment: II - A patient with mild systemic disease. - After reviewing the risks and benefits, the patient was deemed in satisfactory condition to undergo the procedure. - The anesthesia plan was to use general anesthesia. - Immediately prior to administration of medications, the patient was re-assessed for adequacy to receive sedatives. - The heart rate, respiratory rate, oxygen saturations, blood pressure, adequacy of pulmonary ventilation, and response to care were monitored throughout the procedure. - The physical status of the patient was re-assessed after the procedure. After obtaining informed consent, the scope was passed under direct vision. Throughout the procedure, the patient's blood pressure, pulse, and oxygen saturations were monitored continuously. The scope was introduced through the mouth, and advanced to the duodenum and used to inject contrast into the bile duct and ventral pancreatic duct. The ERCP was performed with moderate difficulty due to challenging cannulation because of papillary stenosis. Successful completion of the procedure was aided by performing the maneuvers documented (below) in this report. The patient tolerated the procedure well. Findings: The general ledger bookkeeper film was normal. The esophagus was successfully intubated under direct vision without detailed examination of the pharynx, larynx, and associated structures, and upper GI tract. The upper GI tract was grossly normal. The major papilla was normal. The ventral pancreatic duct was inadvertently cannulated during attempted biliary cannulation with the short-nosed traction sphincterotome (Omni 35) and 0.035 in Acrobat guidewire without any complications. The wire was left in place to aid in biliary cannulation using a double wire technique. The bile duct was then cannulated and opacified with the short-nosed traction sphincterotome (Rx 39) and 0.025 in Acrobat guidewire. The following techniques were unsuccessful: short-nosed traction sphincterotome (Omni 35) and 0.035 in Acrobat guidewire. After biliary cannulation there was difficulty with passsing the wire into the upper biliary tree, likele related to crossing of the cystic duct. The 0.025 Acobat was exchanged for a 0.035 in Acrobat through an Omni 35 sphinctertome. Contrast was injected, I personally interpreted the bile duct images. Contrast extended to the entire biliary tree. The biliary orifice was stenotic. This appeared benign. The lower third of the main bile duct contained one small stone. The common bile duct appeared to be a normal size (about 5 mm). The gallbladder contained multiple large stones. The left and right hepatic ducts and all intrahepatic branches were mildly dilated and diffusely dilated. The largest diameter was 7 mm. Biliary sphincterotomy was made with a monofilament short-tip traction sphincterotome using ERBE electrocautery. There was no post-sphincterotomy bleeding. To discover objects, the biliary tree was swept with an 8.5 mm balloon starting at the bifurcation. A few small white pigmented stones were removed. No stones remained on injection of the biliary tree. An attempt to place a 10 Fr 9 cm biliary stent was made, however the stent would not pass into the upper biliary tree, likely represents Mirizzi's syndrom. We then placed One 7 Fr by 9 cm biliary stent with a single external flap and a single internal flap was placed 9 cm into the common bile duct. Bile flowed through the stent. The stent was in good position. An attempt was made to place a 5 fr 5 cm pancreatic stent into the pancreatic duct. The acrobat wire frayed and remained partially in the stent. This stent was therefore removed (frayed wire included). The pancreatic duct was recannulated with a Rx 39 sphinctertome and 0.025 in Acrobate guidewire after 2 additional attempts. One 5 Fr by 5 cm pancreatic stent with a 3/4 external pigtail and no internal flaps was placed 5 cm into the ventral pancreatic duct. Clear fluid flowed through the stent(s). The stent was in good position. The total fluoroscopy exposure time was 9 minutes and 14 seconds. The endoscope was withdrawn from the patient. Impression: - Biliary papillary stenosis, benign. - The left and right hepatic ducts and all intrahepatic branches were mildly dilated. I suspect this may represent Mirizzi's Syndrome. - A sphincterotomy was performed. - One 7 Fr 9 cm biliary stent was placed into the common bile duct (into the common hepatic duct). - One prophylaxtic 5 Fr 5 cm pancreatic stent was placed into the ventral pancreatic duct. - Choledocholithiasis was found. Complete removal was accomplished by biliary sphincterotomy and balloon extraction. Recommendation: - Avoid aspirin and nonsteroidal anti-inflammatory medicines for 1 week. - Clear liquid diet today. - Observe patient's clinical course following today's ERCP with therapeutic intervention. - Refer to a surgeon for cholecystectomy. - Repeat ERCP in 4-6 weeks to remove stent. Alicia Escobar D.O. Alicia Escobar, 09/06/2016 1:26:59 PM This report has been signed electronically. Note Initiated On: 09/06/2016 10:56 AM
[2016-09-06] MEDS ORDERED: PIPERACILL/TAZOBAC IV 4.5 GM in DEXTROSE 5% 100ML 100 ML IV SCH (13:30)
--- NOTE | 2016-09-06 13:30 | [facility] Post Operative Brief Note ---
Immediate Operative Summary Operative Date Sep 06, 2016. Pre-Operative Diagnosis Choledocholithiasis Post-Operative Diagnosis Small CBD stones Numerous large stones in gallbladder Papillary stenosis Mirizzi's Syndrome Procedure(s) Performed Endoscopic Retrograde Cholangiopancreatogram, placement of pancreatic and biliary stents Surgeon Dr. Alicia Escobar Train Control Technician Surgeon(s) None Estimated Blood Loss None Findings Small CBD stones Numerous large stones in gallbladder Papillary stenosis Mirizzi's Syndrome Specimens None Anesthesia General Complication(s) None Disposition Recovery Room / PACU
[2016-09-06] MEDS ORDERED: PIPERACILL/TAZOBAC CONSULT ACTIVE PRN (14:00)
[2016-09-06] MEDS ORDERED: PIPERACILL/TAZOBAC IV 3.375 GM in DEXTROSE 5% 100ML IV ONE (14:00)
--- NOTE | 2016-09-06 14:12 | Anesthesiology Progress Note ---
Anesthesia Post Op Note Date & Time Sep 06, 2016 at 14:11 Vital Signs Pain Intensity: 0.0 Vital Signs Past 12 Hours Date Time Temp Pulse Resp B/P Pulse Ox O2 Delivery O2 Flow Rate FiO2 09/06/16 14:07 95 Room Air 10.0 09/06/16 14:00 36.8 66 16 134/80 95 Room Air 10.0 09/06/16 13:55 60 16 129/86 96 Room Air 09/06/16 13:45 36.7 61 16 130/81 96 Room Air 09/06/16 13:40 60 16 132/81 100 Mask 10 09/06/16 13:30 60 16 130/84 100 Mask 10 09/06/16 13:30 36.5 09/06/16 13:28 130/84 09/06/16 13:25 64 20 09/06/16 13:25 63 20 100 09/06/16 13:23 133/85 09/06/16 13:20 66 15 09/06/16 13:20 Room Air 09/06/16 13:20 66 15 100 09/06/16 13:18 137/86 09/06/16 13:15 67 18 09/06/16 13:15 67 18 100 09/06/16 13:13 138/86 09/06/16 13:10 76 16 100 09/06/16 13:10 76 16 09/06/16 13:09 132/87 09/06/16 13:05 36.6 73 16 132/87 100 Mask 10 09/06/16 10:33 37.4 78 16 153/94 94 Room Air 09/06/16 09:30 36.7 73 18 126/76 95 Room Air 09/06/16 08:00 98 Room Air Notes Mental Status: alert / awake / arousable, participated in evaluation Pt Amnestic to Procedure: Yes Nausea / Vomiting: adequately controlled Pain: adequately controlled Airway Patency, RR, SpO2: stable & adequate BP & HR: stable & adequate Hydration State: stable & adequate Anesthetic Complications: no major complications apparent
--- NOTE | 2016-09-06 14:53 | DIAGNOSTIC IMAGING REPORT ---
FLUOROSCOPY PROVIDED FOR ERCP BILIARY DUCTAL CLINICAL HISTORY: DUCT EXPLORATION IN OR. Choledocholithiasis. COMPARISON STUDY: MRCP 09/05/2016. FLUOROSCOPY TIME: 556 seconds. 18 images submitted. FINDINGS: The endoscope was passed to the second portion of the duodenum and the ampulla was cannulated. There is a guidewire seen within the main pancreatic duct and common bile duct. Contrast was injected into the common bile duct and gallbladder. There are multiple large gallstones present. A common bile duct stent and main pancreatic duct stent were placed. The stent appeared to be in good position. IMPRESSION: 1. Fluoroscopy provided for placement of a common bile duct stent and main pancreatic duct stent. 2. Cholelithiasis. Electronically signed by: Leo Coffey M.D. 09/06/2016 2:52 PM Dictated Date/Time: 09/06/2016 2:50 PM
--- NOTE | 2016-09-06 17:22 | Progress Note ---
Medicine Progress Note Date & Time of Visit: Sep 06, 2016 at 17:14. (Karolina Mcmahan ., FABI-Rosalio) Subjective Pt is sitting up in bed appearing comfortable. He just returned from [facility]. Procedure went smoothly. Pt just complaining of throat soreness. No abd pain, N/ V. Pt denies chest pain, SOB, abd pain, N/V, bowel or bladder issues, LE edema, calf pain, lightheadedness/dizziness. (Karolina Mcmahan ., FABI-C) Patient is doing well. Came back from ERCP earlier today. Doing well. Clinically 7 hemodynamically stable. No other new change or event. (Reji Chan MD) Objective Last 8 Hrs Date Time Temp Pulse Resp B/P Pulse Ox O2 Delivery O2 Flow Rate FiO2 09/06/16 16:00 Room Air 09/06/16 16:00 36.6 83 18 129/76 95 Room Air 09/06/16 15:03 36.5 63 18 133/76 96 Room Air 09/06/16 14:35 36.6 66 18 120/77 95 Room Air 09/06/16 14:07 95 Room Air 10.0 09/06/16 14:00 36.8 66 16 134/80 95 Room Air 10.0 09/06/16 13:55 60 16 129/86 96 Room Air 09/06/16 13:45 36.7 61 16 130/81 96 Room Air 09/06/16 13:40 60 16 132/81 100 Mask 10 09/06/16 13:30 60 16 130/84 100 Mask 10 09/06/16 13:30 36.5 09/06/16 13:28 130/84 09/06/16 13:25 64 20 09/06/16 13:25 63 20 100 09/06/16 13:23 133/85 09/06/16 13:20 66 15 09/06/16 13:20 Room Air 09/06/16 13:20 66 15 100 09/06/16 13:18 137/86 09/06/16 13:15 67 18 09/06/16 13:15 67 18 100 09/06/16 13:13 138/86 09/06/16 13:10 76 16 100 09/06/16 13:10 76 16 09/06/16 13:09 132/87 09/06/16 13:05 36.6 73 16 132/87 100 Mask 10 09/06/16 10:33 37.4 78 16 153/94 94 Room Air 09/06/16 09:30 36.7 73 18 126/76 95 Room Air Physical Exam: General-Sitting up comfortably in bed Eyes-scleral icterus Neck-supple Lungs-CTA throughout; no crackles or wheezes noted Heart-RRR Abdomen-BS normoactive x 4 quadrants; abd soft and non-tender to palpation Extremities-normal to inspection; no swelling Neuro-A&O x 3 Skin-jaundiced Laboratory Results: Last 24 Hours Test 09/06/16 06:20 09/06/16 16:20 White Blood Count 6.52 K/uL Red Blood Count 4.94 M/uL Hemoglobin 15.5 g/dL Hematocrit 43.3 % Mean Corpuscular Volume 87.7 fL Mean Corpuscular Hemoglobin 31.4 pg Mean Corpuscular Hemoglobin Concent 35.8 g/dl RDW Standard Deviation 41.8 fL RDW Coefficient of Variation 13.0 % Platelet Count 229 K/uL Mean Platelet Volume 10.5 fL Prothrombin Time 10.8 SECONDS Prothromb Time International Ratio 1.0 Sodium Level 141 mmol/L Potassium Level 4.0 mmol/L Chloride Level 104 mmol/L Carbon Dioxide Level 27 mmol/L Anion Gap 10.0 mmol/L Blood Urea Nitrogen 8 mg/dl Creatinine 0.69 mg/dl Est Creatinine Clear Calc Drug Dose 157.2 ml/min Estimated GFR () 128.3 Estimated GFR (Non- 110.7 BUN/Creatinine Ratio 11.7 Random Glucose 94 mg/dl Calcium Level 9.0 mg/dl Magnesium Level 1.9 mg/dl Total Bilirubin 9.3 mg/dl Aspartate Amino Transf (AST/SGOT) 75 U/L Alanine Aminotransferase (ALT/SGPT) 271 U/L Alkaline Phosphatase 284 U/L Total Protein 6.8 gm/dl Albumin 3.3 gm/dl Globulin 3.5 gm/dl Albumin/Globulin Ratio 0.9 Lipase 119 U/L (Karolina Mcmahan ., JENIFERC) Assessment & Plan CHOLEDOCHOLITHIASIS pt presented with post-prandial abd pain, low grade fevers, jaundice, N/V; no prior h/o gallbladder issues -admitted to med/surg -cholangitis considered but unlikely with no fever or leukocytosis -MRCP + Choledocholithiasis is suspected, with a small stone located in the proximal common bile duct. There is upstream intra and extrahepatic biliary ductal dilatation. No evidence of acute cholecystitis. -total bili 9.8, direct bili 8.1, AST 76, ALT 330 on admission -hepatic serologies-pending -cont IVF, Protonix and morphine PRN pain -MRCP today-> stone retrieved with pancreatic and biliary stents placed -monitor LFTs and amylase/lipase -plan for cholecystectomy tomorrow -general surgery consulted, Dr. Petersen -consulted GI-appreciate help -monitor HEPATIC LESION -MRCP+ indeterminant 1.1 cm T2 hyperintense lesion in the inferior right lobe. This may represent a small hemangioma but is incompletely characterized. This is of low suspicion. -If further assessment is desired then a targeted ultrasound or a liver protocol CT/MRI could be obtained on a nonemergent basis. HYPOTHYROIDISM -cont levothyroxine HTN -BP elevated on arrival; stable now -not on medications at home -monitor DVT PROPHYLAXIS -SCDs only due to possible OR again tomorrow CODE STATUS -FULL CODE status per discussion with patient upon admission DISPO -Pt seen in collaboration with Dr. Chan. Please see his addendum for further details. Thanks! Current Inpatient Medications: Current Inpatient Medications Medications (Trade) Dose Ordered Sig/Zaira Route Start Time Stop Time Status Last Admin Dose Admin Acetaminophen (Tylenol Tab) 650 mg Q4H PRN PO 09/05/16 18:00 10/05/16 17:59 Ondansetron HCl 4 mg 4 mg Q6H PRN IV 09/05/16 18:00 10/05/16 17:59 Sodium Chloride 1,000 ml @ 75 mls/hr [id number] IV 09/05/16 18:00 10/05/16 17:59 09/06/16 07:31 75 MLS/HR Pantoprazole Sodium/Syringe (Protonix Inj/ Syringe) 10 ml @ 40 mls/min DAILY@1100 IV 09/06/16 11:00 10/06/16 10:59 09/06/16 10:17 40 MLS/MIN Morphine Sulfate (MoRPHine SULFATE INJ) 4 mg Q4H PRN IV 09/05/16 18:45 09/19/16 18:44 Piperacillin Sod/ Tazobactam Sod 1 ea 1 ea UD PRN N/A 09/06/16 14:00 10/06/16 13:59 Piperacillin Sod/ Tazobactam Sod/ Dextrose (Zosyn Iv/D5 100ml) 115 ml @ 28.75 mls/ hr Q8H IV 09/06/16 20:00 09/16/16 19:59 (Karolina Mcmahan ., PA-C) ERCP shows Endoscopic Retrograde Cholangiopancreatogram, placement of pancreatic and biliary stents Follow up labs in AM Evaluation by general surgery for Cholecystectomy. Reji Chan MD (Reji Chan MD)
[2016-09-06] MEDS: PIPERACILL/TAZOBAC IV 3.375 GM in DEXTROSE 5% 100ML IV SCH (21:21)
[2016-09-07 03:51] VITALS: BP 99/62; PULSE 72; TEMP 36.7; O2SAT 95
[2016-09-07] MEDS: PIPERACILL/TAZOBAC IV 3.375 GM in DEXTROSE 5% 100ML IV SCH (04:08)
[2016-09-07 06:43] LABS: HEMATOCRIT 39.5 % (42-52); MEAN CELL VOLUME 88.6 fL (80-100); MEAN CORPUSCULAR HEMOGLOBIN 30.9 pg (25-34); MEAN CORPUSCULAR HGB CONC 34.9 g/dl (32-36); MEAN PLATELET VOLUME 10.3 fL (7.4-10.4); PLATELET COUNT 219 K/uL (130-400); RED BLOOD COUNT 4.46 M/uL (4.7-6.1); WHITE BLOOD COUNT 9.93 K/uL (4.8-10.8)
[2016-09-07 07:25] VITALS: BP 116/71; PULSE 65; TEMP 36.7; O2SAT 95
[2016-09-07 07:33] LABS: CREATININE 0.77 mg/dl (0.60-1.40)
--- NOTE | 2016-09-07 08:12 | Surgery Progress Note ---
Surgery Progress Note Date of Service Sep 07, 2016. Subjective + feeling well feeling ok...denies abdominal pain. no nausea. urine has cleared up some and his stool is darker Objective Vital Signs: Date Time Temp Pulse Resp B/P Pulse Ox O2 Delivery O2 Flow Rate FiO2 09/07/16 07:25 36.7 65 17 116/71 95 Room Air 09/07/16 07:10 Room Air 09/07/16 03:51 36.7 72 16 99/62 95 Room Air 09/06/16 23:47 37.1 72 18 112/68 95 Room Air 09/06/16 21:08 37.0 73 16 114/68 95 Room Air 09/06/16 19:40 Room Air 09/06/16 17:18 37.2 89 16 151/91 93 Room Air 09/06/16 16:00 Room Air 09/06/16 16:00 36.6 83 18 129/76 95 Room Air 09/06/16 15:03 36.5 63 18 133/76 96 Room Air 09/06/16 14:35 36.6 66 18 120/77 95 Room Air 09/06/16 14:07 95 Room Air 10.0 09/06/16 14:00 36.8 66 16 134/80 95 Room Air 10.0 09/06/16 13:55 60 16 129/86 96 Room Air 09/06/16 13:45 36.7 61 16 130/81 96 Room Air 09/06/16 13:40 60 16 132/81 100 Mask 10 09/06/16 13:30 60 16 130/84 100 Mask 10 09/06/16 13:30 36.5 09/06/16 13:28 130/84 09/06/16 13:25 64 20 09/06/16 13:25 63 20 100 09/06/16 13:23 133/85 09/06/16 13:20 66 15 09/06/16 13:20 Room Air 09/06/16 13:20 66 15 100 09/06/16 13:18 137/86 09/06/16 13:15 67 18 09/06/16 13:15 67 18 100 09/06/16 13:13 138/86 09/06/16 13:10 76 16 100 09/06/16 13:10 76 16 09/06/16 13:09 132/87 09/06/16 13:05 36.6 73 16 132/87 100 Mask 10 09/06/16 10:33 37.4 78 16 153/94 94 Room Air 09/06/16 09:30 36.7 73 18 126/76 95 Room Air General Appearance: no apparent distress Head: normocephalic, atraumatic Neck: supple Respiratory/Chest: no respiratory distress, no accessory muscle use Abdomen: normal bowel sounds, non distended, soft Extremities: normal range of motion, non-tender Laboratory Results: Results Past 24 Hours Test 09/06/16 16:20 09/07/16 06:25 Range/Units Total Bilirubin 8.8 5.2 0.2-1 mg/dl Direct Bilirubin 7.5 3.8 0-0.2 mg/dl Aspartate Amino Transf (AST/SGOT) 72 59 15-37 U/L Alanine Aminotransferase (ALT/SGPT) 244 212 12-78 U/L Alkaline Phosphatase 272 235 45-117 U/L Total Protein 6.8 6.2 6.4-8.2 gm/dl Albumin 3.0 2.8 3.4-5.0 gm/dl White Blood Count 9.93 4.8-10.8 K/uL Red Blood Count 4.46 4.7-6.1 M/uL Hemoglobin 13.8 14.0-18.0 g/dL Hematocrit 39.5 42-52 % Mean Corpuscular Volume 88.6 80-100 fL Mean Corpuscular Hemoglobin 30.9 25-34 pg Mean Corpuscular Hemoglobin Concent 34.9 32-36 g/dl RDW Standard Deviation 42.5 36.4-46.3 fL RDW Coefficient of Variation 13.1 11.5-14.5 % Platelet Count 219 130-400 K/uL Mean Platelet Volume 10.3 7.4-10.4 fL Creatinine 0.77 0.60-1.40 mg/dl Est Creatinine Clear Calc Drug Dose 140.8 ml/min Estimated GFR () 122.6 Estimated GFR (Non- 105.8 Amylase Level 94 25-115 U/L Lipase 383 73-393 U/L Assessment & Plan 1. choledocholithiasis/cholelithiasis no sign of acute cholecystitis LFT's improved considerably since ERCP I have recommended/offered pt lap tricia today but he does not want to do it now. we discussed his options. he really wants to go home for a couple of days , follow up with me in office saturday/saturday and schedule lap tricia electively. we discussed the risks of this. in fairness with no sign of cholecystitis and elevated LFT's it's not unreasonable to plan interval lap tricia in 1 week or so. pt aware of risk of passing another stone ok from my standpoint for d/c today/tomorrow. pt will f/u with me on Saturday to schedule elective lap tricia.
--- NOTE | 2016-09-07 08:57 | Anesthesiology Progress Note ---
Anesthesia Post Op Note Date & Time Sep 07, 2016 at 08:57 Vital Signs Pain Intensity: 0.0 Vital Signs Past 12 Hours Date Time Temp Pulse Resp B/P Pulse Ox O2 Delivery O2 Flow Rate FiO2 09/07/16 07:25 36.7 65 17 116/71 95 Room Air 09/07/16 07:10 Room Air 09/07/16 03:51 36.7 72 16 99/62 95 Room Air 09/06/16 23:47 37.1 72 18 112/68 95 Room Air 09/06/16 21:08 37.0 73 16 114/68 95 Room Air Notes Mental Status: alert / awake / arousable, participated in evaluation Pt Amnestic to Procedure: Yes Nausea / Vomiting: adequately controlled Pain: adequately controlled Airway Patency, RR, SpO2: stable & adequate BP & HR: stable & adequate Hydration State: stable & adequate Anesthetic Complications: no major complications apparent
--- NOTE | 2016-09-07 08:57 | Progress Note ---
Medicine Progress Note Date & Time of Visit: Sep 07, 2016 at 08:52. (Karolina Mcmahan ., FABI-C) Subjective + mild prod cough this morning. No abd pain. No N/V. Tolerating clear liquid diet. Pt denies fever/chills, chest pain, SOB, abd pain, N/V, bowel or bladder issues, LE edema ,calf pain, lightheadedness/dizziness. (Karolina Mcmahan ., PA-C) Patient is doing very well. Denies any nausea/vomiting or abdominal pain. No new change or complaint. (Reji Chan MD) Objective Last 8 Hrs Date Time Temp Pulse Resp B/P Pulse Ox O2 Delivery O2 Flow Rate FiO2 09/07/16 07:25 36.7 65 17 116/71 95 Room Air 09/07/16 07:10 Room Air 09/07/16 03:51 36.7 72 16 99/62 95 Room Air Physical Exam: General-Sitting up comfortably in bed Eyes-mild scleral icterus Neck-supple Lungs-CTA throughout; no crackles or wheezes noted Heart-RRR Abdomen-BS normoactive x 4 quadrants; abd soft and non-tender to palpation Extremities-normal to inspection; no swelling Neuro-A&O x 3 Skin-improving jaundice Laboratory Results: Last 24 Hours Test 09/06/16 16:20 09/07/16 06:25 Total Bilirubin 8.8 mg/dl 5.2 mg/dl Direct Bilirubin 7.5 mg/dl 3.8 mg/dl Aspartate Amino Transf (AST/SGOT) 72 U/L 59 U/L Alanine Aminotransferase (ALT/SGPT) 244 U/L 212 U/L Alkaline Phosphatase 272 U/L 235 U/L Total Protein 6.8 gm/dl 6.2 gm/dl Albumin 3.0 gm/dl 2.8 gm/dl White Blood Count 9.93 K/uL Red Blood Count 4.46 M/uL Hemoglobin 13.8 g/dL Hematocrit 39.5 % Mean Corpuscular Volume 88.6 fL Mean Corpuscular Hemoglobin 30.9 pg Mean Corpuscular Hemoglobin Concent 34.9 g/dl RDW Standard Deviation 42.5 fL RDW Coefficient of Variation 13.1 % Platelet Count 219 K/uL Mean Platelet Volume 10.3 fL Creatinine 0.77 mg/dl Est Creatinine Clear Calc Drug Dose 140.8 ml/min Estimated GFR () 122.6 Estimated GFR (Non- 105.8 Amylase Level 94 U/L Lipase 383 U/L (Karolina Mcmahan ., PATRICE) Assessment & Plan CHOLEDOCHOLITHIASIS pt presented with post-prandial abd pain, low grade fevers, jaundice, N/V; no prior h/o gallbladder issues -admitted to med/surg -cholangitis considered but unlikely with no fever or leukocytosis -MRCP + Choledocholithiasis is suspected, with a small stone located in the proximal common bile duct. There is upstream intra and extrahepatic biliary ductal dilatation. No evidence of acute cholecystitis. -total bili 9.8, direct bili 8.1, AST 76, ALT 330 on admission -hepatic serologies-pending -cont IVF, Protonix and morphine PRN pain -ERCP yesterday-> stone retrieved with pancreatic and biliary stents placed -LFTs trending down and amylase/lipase WNL -plan for cholecystectomy next week -general surgery consulted, Dr. Petersen-appreciate input -consulted GI-appreciate help -monitor HEPATIC LESION -MRCP+ indeterminant 1.1 cm T2 hyperintense lesion in the inferior right lobe. This may represent a small hemangioma but is incompletely characterized. This is of low suspicion. -If further assessment is desired then a targeted ultrasound or a liver protocol CT/MRI could be obtained on a nonemergent basis. HYPOTHYROIDISM -cont levothyroxine HTN -BP elevated on arrival; stable now -not on medications at home -monitor DVT PROPHYLAXIS -SCDs only CODE STATUS -FULL CODE status per discussion with patient upon admission DISPO -Likely discharge later today. F/U general surgery for cholecystectomy next week. -Pt seen in collaboration with Dr. Chan. Please see his addendum for further details. Thanks! Current Inpatient Medications: Current Inpatient Medications Medications (Trade) Dose Ordered Sig/Zaira Route Start Time Stop Time Status Last Admin Dose Admin Acetaminophen (Tylenol Tab) 650 mg Q4H PRN PO 09/05/16 18:00 10/05/16 17:59 Ondansetron HCl 4 mg 4 mg Q6H PRN IV 09/05/16 18:00 10/05/16 17:59 Sodium Chloride 1,000 ml @ 75 mls/hr [id number] IV 09/05/16 18:00 10/05/16 17:59 09/06/16 21:21 75 MLS/HR Pantoprazole Sodium/Syringe (Protonix Inj/ Syringe) 10 ml @ 40 mls/min DAILY@1100 IV 09/06/16 11:00 10/06/16 10:59 09/06/16 10:17 40 MLS/MIN Morphine Sulfate (MoRPHine SULFATE INJ) 4 mg Q4H PRN IV 09/05/16 18:45 09/19/16 18:44 Piperacillin Sod/ Tazobactam Sod 1 ea 1 ea UD PRN N/A 09/06/16 14:00 10/06/16 13:59 Piperacillin Sod/ Tazobactam Sod/ Dextrose (Zosyn Iv/D5 100ml) 115 ml @ 28.75 mls/ hr Q8H IV 09/06/16 20:00 09/16/16 19:59 09/07/16 04:08 28.75 MLS/HR (Karolina Mcmahan, PA-C) Clinically doing well. No new change or complaint. Has been cleared by GI for discharge. patient wants to have evaluation for cholecystectomy done as outpatient. So he will follow up with GI and General Surgery after discharge as outpatient. Dietary precautions explained. Reji Chan MD (Reji Chan MD)
--- NOTE | 2016-09-07 10:36 | Gastroenterology Progress Note ---
Progress Note Date of Service: Sep 07, 2016 Subjective Pt evaluation today including: conversation w/ patient, conversation w/ family , physical exam, chart review, lab review, review of studies, review of inpatient medication list Pt feels well, denies any abd pain, n/v, tolerated breakfast well. His LFTs are improving, Amylase/Lipase normal. Review of Systems Constitutional: No chills, No fever Respiratory: + cough (mild, productive), No shortness of breath Cardiac: No chest pain Abdomen: No nausea, No pain, No vomiting Skin: + jaundice, No itch, No rash Medications Current Inpatient Medications Medications (Trade) Dose Ordered Sig/Zaira Route Start Time Stop Time Status Last Admin Dose Admin Acetaminophen (Tylenol Tab) 650 mg Q4H PRN PO 09/05/16 18:00 10/05/16 17:59 Ondansetron HCl 4 mg 4 mg Q6H PRN IV 09/05/16 18:00 10/05/16 17:59 Pantoprazole Sodium/Syringe (Protonix Inj/ Syringe) 10 ml @ 40 mls/min DAILY@1100 IV 09/06/16 11:00 10/06/16 10:59 09/06/16 10:17 40 MLS/MIN Morphine Sulfate (MoRPHine SULFATE INJ) 4 mg Q4H PRN IV 09/05/16 18:45 09/19/16 18:44 Piperacillin Sod/ Tazobactam Sod 1 ea 1 ea UD PRN N/A 09/06/16 14:00 10/06/16 13:59 Piperacillin Sod/ Tazobactam Sod/ Dextrose (Zosyn Iv/D5 100ml) 115 ml @ 28.75 mls/ hr Q8H IV 09/06/16 20:00 09/16/16 19:59 09/07/16 04:08 28.75 MLS/HR Objective Vital Signs Date Time Temp Pulse Resp B/P Pulse Ox O2 Delivery O2 Flow Rate FiO2 09/07/16 07:25 36.7 65 17 116/71 95 Room Air 09/07/16 07:10 Room Air 09/07/16 03:51 36.7 72 16 99/62 95 Room Air 09/06/16 23:47 37.1 72 18 112/68 95 Room Air 09/06/16 21:08 37.0 73 16 114/68 95 Room Air 09/06/16 19:40 Room Air 09/06/16 17:18 37.2 89 16 151/91 93 Room Air 09/06/16 16:00 Room Air 09/06/16 16:00 36.6 83 18 129/76 95 Room Air 09/06/16 15:03 36.5 63 18 133/76 96 Room Air 09/06/16 14:35 36.6 66 18 120/77 95 Room Air 09/06/16 14:07 95 Room Air 10.0 09/06/16 14:00 36.8 66 16 134/80 95 Room Air 10.0 09/06/16 13:55 60 16 129/86 96 Room Air 09/06/16 13:45 36.7 61 16 130/81 96 Room Air 09/06/16 13:40 60 16 132/81 100 Mask 10 09/06/16 13:30 60 16 130/84 100 Mask 10 09/06/16 13:30 36.5 09/06/16 13:28 130/84 09/06/16 13:25 64 20 09/06/16 13:25 63 20 100 09/06/16 13:23 133/85 09/06/16 13:20 66 15 09/06/16 13:20 Room Air 09/06/16 13:20 66 15 100 09/06/16 13:18 137/86 09/06/16 13:15 67 18 09/06/16 13:15 67 18 100 09/06/16 13:13 138/86 09/06/16 13:10 76 16 100 09/06/16 13:10 76 16 09/06/16 13:09 132/87 09/06/16 13:05 36.6 73 16 132/87 100 Mask 10 09/06/16 10:33 37.4 78 16 153/94 94 Room Air Physical Exam General Appearance: WD/WN, no apparent distress Eyes: EOMI, + pertinent finding (icteric sclera) Neck: supple, no JVD, trachea midline Respiratory/Chest: normal breath sounds, no respiratory distress, no accessory muscle use Cardiovascular: regular rate, rhythm, no gallop, no murmur Abdomen: normal bowel sounds, non tender, soft Neurologic/Psych: alert, normal mood/affect, oriented x 3 Skin: warm/dry, no rash, + jaundice Laboratory Results Last 24 Hours Test 09/06/16 16:20 09/07/16 06:25 Total Bilirubin 8.8 mg/dl 5.2 mg/dl Direct Bilirubin 7.5 mg/dl 3.8 mg/dl Aspartate Amino Transf (AST/SGOT) 72 U/L 59 U/L Alanine Aminotransferase (ALT/SGPT) 244 U/L 212 U/L Alkaline Phosphatase 272 U/L 235 U/L Total Protein 6.8 gm/dl 6.2 gm/dl Albumin 3.0 gm/dl 2.8 gm/dl White Blood Count 9.93 K/uL Red Blood Count 4.46 M/uL Hemoglobin 13.8 g/dL Hematocrit 39.5 % Mean Corpuscular Volume 88.6 fL Mean Corpuscular Hemoglobin 30.9 pg Mean Corpuscular Hemoglobin Concent 34.9 g/dl RDW Standard Deviation 42.5 fL RDW Coefficient of Variation 13.1 % Platelet Count 219 K/uL Mean Platelet Volume 10.3 fL Creatinine 0.77 mg/dl Est Creatinine Clear Calc Drug Dose 140.8 ml/min Estimated GFR () 122.6 Estimated GFR (Non- 105.8 Amylase Level 94 U/L Lipase 383 U/L Assessment and Plan Impression Patient is a 51 year old male w jaundice, pale stools, dark urine, intermittent abd pain. LFTs elevated as noted in HPI above, u/s and MRCP showed gallstones, biliary duct dilation and likely choledocholithiasis in proximal bile duct. ERCP on 09/06/16 - choledocholithiasis removal, sphincterectomy, biliary and pancreatic duct stents placement. LFTs improving, normal Amylase/Lipase. He's feeling well w/o abd pain, n/v, tolerating breakfast well. Seen by Surgery (Dr. Petersen) - pt opts to go home today if cleared and then f/u w Dr. Petersen on Saturday to determine timing of cholecystectomy within the next week. Plan - OK for DC from GI standpoint. Would give Cipro 500mg BID x 5 days upon DC. - PCP to follow LFTs on next clinic f/u.; F/U on autoimmune and hepatitis labs. - F/U w Dr. Petersen to discuss timing of pt's cholecystectomy. - Repeat ERCP in 4-6 week's time for stent removal. I discussed the patient with Ms. Hathaway -- he was discharged prior to afternoon rounds.
[2016-09-07] MEDS: PANTOprazole INJ 40 MG in SYRINGE 0 ML IV SCH (10:40)
[2016-09-07] MEDS ORDERED: CPR500 PO (10:57)
--- NOTE | 2016-09-07 11:16 | Discharge Instructions ---
Discharge Instructions Admission Reason for Admission: Choledocholithiasis (Karolina Mcmahan PA-C) Discharge Discharge Diagnosis / Problem: Choledocholithiasis (Karolina Mcmahan PA-C) Discharge Goals Goal(s): Decrease discomfort (Karolina Mcmahan PA-C) Activity Recommendations Activity Limitations: resume your previous activity . (Karolina Mcmahan PA-C) Instructions / Follow-Up Instructions / Follow-Up -follow low fat diet at home -complete 5 day course of antibiotic (Cipro). Script provided. Followup: -call general surgery Saturday to schedule apt to remove gallbladder next week -you have a followup apt scheduled with PCP for SaturdaySeptember 18 @ 1pm -f/u with gastroenterology in 2-3 weeks to schedule time to remove stents Seek medical attention if you have: -temperature above 101 degrees -worsening abdominal pain, nausea/vomiting or yellow skin Call if you have any questions or problems. My cell # is [phone]. You can also reach a [facility] hospitalist on duty at [facility] 24 hours a day by calling [phone]. Please take good care of yourself. Karolina Mcmahan PA-C (Karolina Mcmahan PA-C) Current Hospital Diet Patient's current hospital diet: Regular Diet (Karolina Mcmahan PA-C) Discharge Diet Recommended Diet: Low Fat Diet (Karolina Mcmahan PA-C) Procedures Procedures Performed: Endoscopic Retrograde Cholangiopancreatogram, placement of pancreatic and biliary stents (Karolina Mcmahan PA-C) Pending Studies Studies pending at discharge: yes List of pending studies: autoimmune/hepatitis labs (Karolina Mcmahan PA-C) Medical Emergencies . Who to Call and When: Medical Emergencies: If at any time you feel your situation is an emergency, please call 911 immediately. . (Karolina Mcmahan PA-C) Non-Emergent Contact Non-Emergency issues call your: Primary Care Provider . (Karolina Mcmahan PA-C) . "Provider Documentation" section prepared by Karolina Mcmahan. (Karolina Mcmahan PA-C) VTE Core Measure Inpt VTE Proph given/why not?: SCD's (Karolina Mcmahan ., PA-C)
--- NOTE | 2016-09-07 11:44 | Discharge Summary ---
Discharge Summary Admission Date: Sep 05, 2016 at 17:59 Discharge Date: Sep 07, 2016 Discharge Disposition: Home Principal Diagnosis: Choledocholithiasis Secondary Diagnoses/Problems: Hypothyroidism HTN Consultations: GI general surgery Pending Studies/Follow-Up: autoimmune/hepatitis panel patient will need repeat LFTs prior to f/u apt Sep 18 Medication Reconciliation New Medications: Ciprofloxacin (Ciprofloxacin HCl) 500 Mg Tab 500 MG PO BID for 5 Days Continued Medications: Levothyroxine Sodium (Levothyroxine Sodium) 125 Mcg Tab 125 MCG PO DAILY for 30 Days, #30 TAB 5 Refills Multiple Vitamins W/ Minerals (Centrum Silver) 1 Chw Chw 1 TAB PO HS Admission Information HPI (per Admitting provider): This is a 51 y/o male with PMHx of Hypothyroidism, situational HTN and other problems as outlined below who presents to the ED c/o intermittent abdominal pain x 5 days. Pt reports that 5 days ago he developed diffuse "burning" abd pain after eating house meatballs for dinner. Since that time patient reports waxing and waning pain that seems to be worse after eating. Sxs are assoc with low grade fever (100.4*F), jaundice, N/V, dark urine and pale stool. Pt took a Tylenol on Saturday for his fever but has not taken anything at home for his pain. Pt was seen by his PCP yesterday. Labwork revealed elevated LFTs and patient was referred to the ED. Pt has no history of gallbladder issues and no history of abdominal surgeries. Pt denies chest pain, SOB, constipation, diarrhea, LE edema ,calf pain, lightheadedness/dizziness. In the ED, pt is hypertensive on arrival. He is afebrile with no leukocytosis. Total bili 9.8. direct bili 8.1. AST 76. ALT 330. Urine 3+ bili. MRCP + choledocholithiasis without evidence of acute cholecystitis. Pt is currently stable and comfortable and will be admitted for further evaluation and treatment. Physical Exam (per Admitting): General Appearance: WD/WN, no apparent distress, + pertinent finding (Pt is sitting up in bed with at bedside ) Head: normocephalic, atraumatic Eyes: + pertinent finding (scleral icterus ) ENT: hearing grossly normal Neck: supple Respiratory/Chest: chest non-tender, lungs clear, normal breath sounds, no respiratory distress Cardiovascular: regular rate, rhythm, no edema, no murmur Abdomen/GI: normal bowel sounds, soft, + tenderness (mild RUQ tenderness) Back: normal inspection Extremities/Musculoskelatal: normal inspection, no calf tenderness, no pedal edema Neurologic/Psych: alert, normal mood/affect, oriented x 3 Skin: warm/dry, no rash, + jaundice Hospital Course Pt presented with post-prandial abd pain assoc with jaundice, dark urine and pale stools. He was afebrile with no leukocytosis on arrival. LFTs were significantly elevated and MRCP showed cholelithiasis with obstructing stone in CBD. Patient was given clear liquid diet, IVF and medicine for pain control. GI was consulted and the following day ERCP was performed. Stone was successfully retrieved and stents were placed in pancreatic and biliary ducts. Pt tolerated procedure well. LFTs trending down and amylase/lipase WNL on post-procedure labs this morning. Plan was for possible cholecystectomy today however after discussion with patient he would prefer to return for cholecystectomy next week. Total time spent on discharge = 40 mins This includes examination of the patient, discharge planning, medication reconciliation, and communication with other providers. Discharge Instructions -follow low fat diet at home -complete 5 day course of antibiotic (Cipro). Script provided. Followup: -call general surgery Saturday to schedule apt to remove gallbladder next week -you have a followup apt scheduled with PCP for SaturdaySeptember 18 @ 1pm -f/u with gastroenterology in 2-3 weeks to schedule time to remove stents Seek medical attention if you have: -temperature above 101 degrees -worsening abdominal pain, nausea/vomiting or yellow skin Call if you have any questions or problems. My cell # is [phone]. You can also reach a [facility] hospitalist on duty at [facility] 24 hours a day by calling [phone]. Please take good care of yourself. Karolina Mcmahan PA-C Additional Copies To Elio Newman M.D.(NATASHA) Alicia Escobar, DO
[2016-09-07 11:54] VITALS: BP 116/71; PULSE 65; TEMP 36.7; O2SAT 95
[2016-09-08 00:28] LABS: ALPHA-1-ANTITRYPSIN TC 67710E 206 MG/DL (83-199)
[2016-09-10] MEDS ORDERED: CIPR1TAB11 PO (16:27)
[2016-09-10] MEDS ORDERED: LEVO200T PO (16:27)
[2016-09-10] MEDS ORDERED: MULT-506 PO (16:27)
[2016-09-17] MEDS ORDERED: HYDR-5688 PO (13:53)
== END 2016-09-07 12:41 | disposition home or self-care (01) | DRG 446 ==
LOC: ENRESERVTM → ENRESERVDT → C.EDB 11:46 → C.MSW 17:59
PROVIDERS: ADMIT Emergency Medicine; ATTEND Emergency Medicine
PROC: 0FC98ZZ Extirpation of Matter from Common Bile Duct, Via Natural or Artificial Opening Endoscopic (ICD-10-PCS; 2016-09-06)
PROC: 0F798DZ Dilation of Common Bile Duct with Intraluminal Device, Via Natural or Artificial Opening Endoscopic (ICD-10-PCS; principal; 2016-09-06 11:00)
DX: K80.20 Calculus of gallbladder without cholecystitis without obstruction (principal); E03.9 Hypothyroidism, unspecified; I10 Essential (primary) hypertension; I34.1 Nonrheumatic mitral (valve) prolapse; Z79.899 Other long term (current) drug therapy; Z80.9 Family history of malignant neoplasm, unspecified; Z82.49 Family history of ischemic heart disease and other diseases of the circulatory system

== ENCOUNTER → 2016-09-10 | Outpatient (CLI) | payer BC ==
[~2016-09-10] MED LIST: CIPR1TAB11 PO; CPR500 PO; HYDR-5688 PO; LEVO125T4 PO; LEVO200T PO; MULT-506 PO; MULTCHW PO
== END | disposition home or self-care (01) ==
LOC: C.CPL 12:39
PROVIDERS: ATTEND Surgery
DX: K80.20 Calculus of gallbladder without cholecystitis without obstruction (principal); K80.50 Calculus of bile duct without cholangitis or cholecystitis without obstruction

== ENCOUNTER 2016-09-17 12:00 | Day surgery (SDC) | payer BC ==
[2016-09-10 16:00] VITALS: BMI 23.0
[~2016-09-17] VITALS: Ht 193 cm; Wt 84.0 kg
[~2016-09-17 12:00] MED LIST changes: +ACETAMINOPHEN 1000 MG/100 ML IV IV ONE; +CEFAZOLIN 2000 MG/60 ML D5W 60 ML IV SCH; -CPR500 PO; +HEPARIN SOD 5000 UNIT/0.5 ML CARP SC SCH; -HYDR-5688 PO; +LACTATED RINGER'S 1000ML 1,000 ML IV SCH; +LACTATED RINGER'S 1000ML IV SCH; -LEVO125T4 PO; -MULTCHW PO
[2016-09-17 12:33] VITALS: BP 137/81; PULSE 64; TEMP 36.6; O2SAT 99; Ht 193 cm; Wt 84.0 kg
[2016-09-17] MEDS ORDERED: FENTANYL CITRATE INJ 50 MCG/1 ML 2 ML VIAL ONE ×3 (13:22→14:18)
[2016-09-17] MEDS ORDERED: EpHEDrine SULFATE INJ 50 MG/ML AMP ONE (13:22)
[2016-09-17] MEDS ORDERED: NEOSTIGMINE METHYLSULFATE 5 MG/5 ML SYR ONE (13:22)
[2016-09-17] MEDS ORDERED: PROPOFOL IV EMULSION 10 MG/ML 20 ML VIAL IV ONE ×2 (13:22→14:24)
[2016-09-17] MEDS ORDERED: PHENYLEPHRINE HCL INJ 10 MG/ML VIAL ONE (13:22)
[2016-09-17] MEDS ORDERED: MIDAZOLAM HCL 1 MG/ML 2ML VIAL ONE (13:22)
[2016-09-17] MEDS ORDERED: ONDANSETRON INJ 2 MG/ML 2 ML VIAL ONE ×2 (13:22→14:24)
[2016-09-17] MEDS ORDERED: SUCCINYLCHOLINE CHLORIDE 20 MG/ML 10 ML VIAL IV ONE (13:22)
[2016-09-17] MEDS ORDERED: LIDOCAINE HCL 2% 2 ML VIAL (20MG/ML) ONE (13:22)
[2016-09-17] MEDS ORDERED: GLYCOPYRROLATE INJ 0.2 MG/ML VIAL ONE (13:22)
[2016-09-17] MEDS ORDERED: ROCURONIUM BROMIDE 10 MG/ML 5 ML VIAL ONE (13:22)
[2016-09-17] MEDS ORDERED: DEXAMETHASONE SOD INJ 4 MG/ML VIAL ONE ×2 (13:22→14:24)
[2016-09-17] MEDS ORDERED: BUPIVACAINE/EPINEPHRINE 0.5% MPF 1:200,000 30 ML VIAL ONE (13:28)
[2016-09-17] MEDS ORDERED: FLUMAZENIL 0.1 MG/1 ML 10 ML VIAL IV PRN (13:45)
[2016-09-17] MEDS ORDERED: MEPERIDINE HCL 25 MG/ML CARP IV PRN (13:45)
[2016-09-17] MEDS ORDERED: ATROPINE SULFATE 0.1 MG/ML 5ML SYR IV PRN (13:45)
[2016-09-17] MEDS ORDERED: EpHEDrine SULFATE INJ 50 MG/ML AMP IV PRN (13:45)
[2016-09-17] MEDS ORDERED: HYDROmorphone INJ 2 MG/ML SYR/VIAL IV PRN (13:45)
[2016-09-17] MEDS ORDERED: LABETALOL HCL IV 5 MG/ML 20ML IV PRN (13:45)
[2016-09-17] MEDS ORDERED: PHENYLEPHRINE 100MCG/ML 5ML SYR IV PRN (13:45)
[2016-09-17] MEDS ORDERED: NALOXONE HCL 0.4 MG/1 ML VIAL/CARP IV PRN (13:45)
[2016-09-17] MEDS ORDERED: ONDANSETRON INJ 2 MG/ML 2 ML VIAL IV PRN ×2 (13:45→15:15)
--- NOTE | 2016-09-17 13:52 | History & Physical Bridge Note ---
H&P Re-Evaluation Bridge Note: I have examined the patient, reviewed the History & Physical and in the interval since the performance of the History & Physical I have noted the following changes of clinical significance: No changes noted
[2016-09-17] MEDS ORDERED: HYDR-5688 PO (13:53)
--- NOTE | 2016-09-17 13:55 | Discharge Instructions ---
Discharge Instructions Admission Reason for Admission: Cholelithiasis, Choledocholithiasis Discharge Discharge Diagnosis / Problem: cholelithiasis Discharge Goals Goal(s): Improve function, Prevent Disease Progression Activity Recommendations Activity Limitations: as noted below Lifting Limitations: no more than 10 pounds Exercise/Sports Limitations: until after follow-up appointment May Resume Sexual Activity: after follow-up appointment Shower/Bathe: tomorrow . Instructions / Follow-Up Instructions / Follow-Up call [phone] for f/u with Dr. Petersen in 1-2 weeks. Current Hospital Diet Patient's current hospital diet: Discharge Diet Recommended Diet: Regular Diet Pending Studies Studies pending at discharge: yes List of pending studies: path report Medical Emergencies . Who to Call and When: Medical Emergencies: If at any time you feel your situation is an emergency, please call 911 immediately. . Non-Emergent Contact Non-Emergency issues call your: Primary Care Provider, Surgeon . "Provider Documentation" section prepared by Kendall Petersen. VTE Core Measure Inpt VTE Proph given/why not?: Unfractionated heparin SQ, SCD's
[2016-09-17] MEDS ORDERED: SURGICEL ABSORB HEMOSTAT 2IN X 14IN TOP ONE (14:49)
[2016-09-17] MEDS ORDERED: SODIUM CHLORIDE 0.9% 1000ML 1,000 ML IV SCH (15:14)
--- NOTE | 2016-09-17 15:14 | [facility] Operative Report ---
Operative Report Operative Date Sep 17, 2016. Pre-Operative Diagnosis Cholelithiasis Post-Operative Diagnosis cholelithiasis; adhesions Procedure(s) Performed lap tricia enterolysis Surgeon Dr Petersen Chocolate Finisher Surgeon(s) Ray Rodas PA-C Estimated Blood Loss 50ml Findings inflammed gallbladder with several large stones adhesions from colon to gallbladder Specimens A: Gallbladder Anesthesia GET Complication(s) None Disposition Recovery Room / PACU I attest to the content of the Intraoperative Record and any orders documented therein. Any exceptions are noted below.
[2016-09-17] MEDS ORDERED: KETOROLAC TROMETHAMINE 30 MG/ML VIAL IV. PRN (15:15)
[2016-09-17] MEDS ORDERED: IBUPROFEN 600 MG TAB PO PRN (15:15)
[2016-09-17] MEDS ORDERED: HYDROCODONE/ACETAMOPHEN 5/325MG TAB PO PRN ×2 (15:15)
[2016-09-17] MEDS: FENTANYL CITRATE INJ 50 MCG/1 ML 2 ML VIAL IV PRN ×3 (15:25→15:40)
[2016-09-17 16:04] VITALS: BP 137/82; PULSE 60; TEMP 36.9; O2SAT 98
--- NOTE | 2016-09-17 16:22 | Anesthesiology Progress Note ---
Anesthesia Post Op Note Date & Time Sep 17, 2016 at 16:23 Vital Signs Pain Intensity: 3 Vital Signs Past 12 Hours Date Time Temp Pulse Resp B/P Pulse Ox O2 Delivery O2 Flow Rate FiO2 09/17/16 16:00 54 12 131/78 95 Room Air 09/17/16 15:50 37.0 56 12 131/84 96 Room Air 09/17/16 15:40 58 13 115/80 100 Mask 10 09/17/16 15:30 57 12 139/87 100 Mask 10 09/17/16 15:20 36.6 66 12 131/75 100 Mask 10 09/17/16 12:33 36.6 64 18 137/81 99 Room Air Notes Mental Status: alert / awake / arousable, participated in evaluation Pt Amnestic to Procedure: Yes Nausea / Vomiting: adequately controlled Pain: adequately controlled Airway Patency, RR, SpO2: stable & adequate BP & HR: stable & adequate Hydration State: stable & adequate Anesthetic Complications: no major complications apparent
[2016-09-17 16:35] VITALS: BP 128/67; PULSE 74; O2SAT 97
[2016-09-17 17:05] VITALS: BP 117/64; PULSE 69; TEMP 36.9; O2SAT 98
--- NOTE | 2016-09-17 22:00 | OPERATIVE REPORT ---
DATE OF OPERATION: 09/17/2016 PREOPERATIVE DIAGNOSIS: Cholelithiasis with a history of choledocholithiasis. POSTOPERATIVE DIAGNOSES: Same with some gallbladder inflammation as well as adhesions from the gallbladder to the transverse colon. PROCEDURES: 1. Laparoscopic cholecystectomy. 2. Enterolysis. SURGEON: Dr. Petersen. PLASTICS PLATER: Ray Decker PA-C. ESTIMATED BLOOD LOSS: Approximately 50 mL. COMPLICATIONS: No immediate. ANESTHESIA: General. CONDITION: The patient tolerated the procedure well. OPERATIVE NOTE: After informed consent was obtained, the patient was taken to the operating suite, placed in supine position. After successful intubation, the abdomen was sterilely prepped and draped in usual fashion. Supraumbilical incision was made with an 11 blade scalpel and carried down through the soft tissue using electrocautery. The anterior rectus fascia was opened using electrocautery and two #0 Vicryl stay sutures were placed. Peritoneum was elevated with hemostats and incised under direct vision using a Metzenbaum scissor. A finger sweep was performed. A 12 mm Cecilia trocar was placed and the abdomen was insufflated to 18 mmHg. Laparoscope was inserted. We were able to place a subxiphoid 10 mm port and 2 right upper quadrant 5 mm ports. The patient was placed in reverse Trendelenburg position and slightly airplaned to the left. When we grabbed the gallbladder, we noted that it was connected the adhesions to the transverse colon. We used blunt dissection as well as some sharp scissor lysis to take the colon down from the gallbladder. Once we did this, I was then able to use a [place] dissector to open the peritoneum down to the neck of the gallbladder. We used primarily blunt dissection. I was able to delineate the cystic duct, skeletonize it, clip it twice proximally, once distally and transect it. There was a small anterior artery branch that was clipped and divided as well. I was then able to find the main cystic artery skeletonized it, clip it twice proximally and once distally and divided as well. The gallbladder was then removed from the gallbladder fossa. There was a small hole made during this process, releasing a small amount of white bile indicating a cystic duct obstruction. We were able to immediately irrigate this and suction it up and we continued to remove the gallbladder. It was placed into an EndoCatch bag. There were a lot of stones and some inflammation around the wall of the gallbladder during all this. We used electrocautery to control some oozing points on the gallbladder fossa. Because of the oozing, we did place a piece of Surgicel into the gallbladder fossa. We thoroughly irrigated the right upper quadrant and suctioned out. At the end of the procedure, there was adequate hemostasis and no evidence of any bile leakage. No other abnormalities were identified. We removed all the trocars. We did have to extend the fascial incision of the supraumbilical incision in order to get the stones in gallbladder out. Once this was done, we then closed the fascia with interrupted [id number] fashion with 0 Vicryl. Wounds were then irrigated and closed using 4-0 Monocryl. Marcaine was injected around them for postoperative analgesia and skin glue used as dressing. The patient was awakened, extubated, and transferred to recovery in stable condition. I attest to the content of the Intraoperative Record and any orders documented therein. Any exceptio ns are noted below.
== END 2016-09-17 17:48 | disposition home or self-care (01) ==
LOC: C.ACU 12:00
PROVIDERS: ATTEND Surgery
DX: K80.10 Calculus of gallbladder with chronic cholecystitis without obstruction (principal); R59.9 Enlarged lymph nodes, unspecified; I10 Essential (primary) hypertension; E03.9 Hypothyroidism, unspecified; Z82.49 Family history of ischemic heart disease and other diseases of the circulatory system; Z82.3 Family history of stroke